=== PATIENT | female | born 1995 | race Caucasian/White ===

== ENCOUNTER 2018-03-15 20:26 | Emergency (ER) | payer OTHER, SELFPAY ==
[2018-03-15 20:27] VITALS: BP 154/70; PULSE 97; RESP 19; TEMP 36.2; O2SAT 100; BMI 18.8
--- NOTE | 2018-03-15 20:47 | EKG12_ITS ---
Test Reason : SYNCOPE Blood Pressure : / mmHG Vent. Rate : 094 BPM Atrial Rate : 094 BPM P-R Int : 154 ms QRS Dur : 092 ms QT Int : 354 ms P-R-T Axes : 069 086 044 degrees QTc Int : 442 ms Normal sinus rhythm RSR' or QR pattern in V1 suggests right ventricular conduction delay Borderline ECG Confirmed by ELMER REYES, ANNEMARIE ([id number]), editorial cartoonist CHAU GAN ([id number]) on 03/18/2018 3:17:26 PM Referred By: RUTH Confirmed By:ANNEMARIE PAYNE MD
--- NOTE | 2018-03-15 20:47 | CT_ITS ---
STUDY: CT BRAIN WITHOUT CONTRAST REASON FOR EXAM: Female, 22 years old. Syncope and confusion RADIATION DOSAGE (If Supplied By Facility): CTDIvol = ( 44.99 ) mGy, DLP = ( 745.49 ) mGycm TECHNIQUE: Transaxial CT imaging of the brain was performed without administration of intravenous contrast material. Individualized dose optimization techniques were used for this CT. COMPARISON: None. FINDINGS: Normal soft tissue structures. Normal calvarium. Normal size ventricles and extra-axial spaces for the patient's age. Normal white matter tracts of the cerebral hemispheres. Normal basal ganglia and thalami. Normal brainstem. Normal cerebellum. There is no intracranial hemorrhage. There are no findings of an acute ischemic infarction. Normal visualized paranasal sinuses. CT/Brain/Head without Contrast IMPRESSION: Normal unenhanced CT scan of the brain. Comment: If there is clinical concern for hyperacute ischemia that is not yet apparent by CT, MRI should be considered if possible. Electronically Signed: Portillo Victor MD at 22:08 EDT Tel , Service support ,
[2018-03-15] MEDS: Ketorolac 30 MG/ML Syringe IV (20:59)
[2018-03-15 21:07] LABS: Absolute Lymphocyte Count 1.32 X10^3/ul (0.83-4.51); Absolute Neutrophil Count 11.8 X10^3/uL (2.0-7.7); Basophil# 0.03 X10^3/uL; Basophil% 0.2 % (0-1); Differential Indicated SCAN CRITERIA MET; Eosinophil# 0.07 X10^3/uL; Eosinophils% 0.5 % (0-5); Hematocrit 37.6 % (37-47); Hemoglobin 12.7 g/dl (12.0-15.0); Lymphocyte # 1.32 X10^3/ul (4.0); Lymphocyte % 9.3 % (19-41); Mean Corp Hgb Conc 33.8 g/gl (32-36); Mean Corpuscular Hgb 29.2 pg (27.0-32.0); Mean Corpuscular Volume 86.4 fL (81-99); Mean Platelet Vol. 9.9 fl (6.2-12.0); Monocyte# 1.01 X10^3/uL; Monocyte% 7.1 % (0-10); Neutrophil # 11.77 X10^3/uL (2.7-7.7); Neutrophil % 82.8 % (47-70); POSITIVE COUNT YES; POSITIVE DIFFERENTIAL NO; POSITIVE MORPHOLOGY NO; Platelet Count 220 K/mm3 (150-450); RBC Distribution Width SD 41.6 fl (35.1-43.9); Red Blood Count 4.35 M/mm3 (4.2-5.4); White Blood Count 14.2 K/mm3 (4.4-11.0)
[2018-03-15 21:08] LABS: D-Dimer Quantitative (DVT/PE) < 0.27 FEU/ug/m (0.27-0.49)
[2018-03-15 21:11] LABS: Anion Gap 8 (5-15); BUN 14 mg/dL (7-18); BUN/Creat Ratio 15.4 RATIO (10-20); Calcium,Total 9.1 mg/dL (8.5-10.1); Chloride 106 mmol/L (98-107); Creatinine, Serum 0.91 mg/dL (0.55-1.02); EST Glomerular Filtration Rate 83 mL/min (>60); Est Glom Filt Rate - Afr Amer 101 mL/min (>60); Estimated Creatinine Clearance 84.74 ml/min; Glucose 93 mg/dL (74-106); Potassium 4.3 mmol/L (3.5-5.1); Sodium Level 139 mmol/L (136-145)
[2018-03-15 21:27] LABS: Differential Comment SCANNED
[2018-03-15 21:34] LABS: Pregnancy, Serum, hCG Quali. NEGATIVE Negative (0-9 Nonpreg)
--- NOTE | 2018-03-15 21:42 | RAD_ITS ---
STUDY: X-RAY CHEST REASON FOR EXAM: Female, 22 years old. Syncopal episode. TECHNIQUE: 2 views COMPARISON: None. FINDINGS: The lungs are clear and expanded. There is no demonstrated pleural abnormality. Normal size heart. Normal mediastinum and toni. Normal visualized pulmonary arteries. Normal visualized aortic arch and descending thoracic aorta. Normal visualized thoracic spine. Normal visualized ribs, clavicles, and shoulders. There is no demonstrated abnormality of the visualized soft tissue structures of the upper abdomen. RAD/Chest PA and Lateral IMPRESSION: Normal x-ray examination of the chest. Electronically Signed: Loni Rees MD at 22:12 EDT , Service support ,
[2018-03-15 22:10] VITALS: BP 131/85; PULSE 97; RESP 18; O2SAT 100
--- NOTE | 2018-03-15 22:13 | ED.VISSUMM ---
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 She states that she has a condition of vocal cord dysfunction and at times the dysfunction kicks in and she cannot breathe. She states that the end of the race after about 2 steps she collapsed and passed out. When she came to she was confused and had a frontal headache. She states that she has blurry vision very similar to when she needed eye surgery for strabismus. She states she feels shaky. She has not had syncope before she only one episode where she felt near syncope. She has taken numerous recent bus trips as part of the [employer] team. Physical Examination: Afebrile vital signs are 154/76 heart rate of 97 however 109 during my seen pulse ox 100% room air Gen: Well-nourished well-developed Head: Normocephalic atraumatic Eyes: Perrl EOMI ENT: TMs clear no rhinorrhea moist mucous membranes Neck: Supple no lymphadenopathy no JVD nontender CVS: Regular rate rhythm no murmurs normal S1-S2 Respiratory: No distress clear to auscultation bilaterally chest nontender Abdomen: Soft nontender nondistended normal bowel sounds no masses Back: Nontender Extremity: Nontender no edema Skin: Normal color no rash Neuro: alert orientated ?3 CN II-XII intact normal strength sensation reflexes gait cerebellar Test Results: EKG shows a sinus rhythm with a rate of 94 with an RSR prime pattern. Chest x-ray shows a normal mediastinal silhouette. Head CT is negative for hemorrhage. White count 14.2. Troponin negative d-dimer negative test negative. Chemistries normal. Emergency Department Course and Treatment: Patient received Toradol. She was observed. Patient will be discharged home to follow-up with her doctors. She was advised to visit with her trainers prior to return to [employer] activities Impression: 1. Syncope 2. Headache This note was generated with [employer] dictation software. It may contain incorrect words, spelling, and punctuation that were not noted in review of the chart prior to signing ED Disposition - Plan for ED Patient: Disposition: Home or Assisted Living Chief Complaint: Syncope Instructions: ED Fainting Unkn Cause Additional Instructions: You need to follow-up with your trainers prior to resuming [employer] activities I would recommend you follow-up with your physicians who have been treating your condition.
--- NOTE | 2018-03-15 22:17 | ED.DCSUM_ITS ---
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 She states that she has a condition of vocal cord dysfunction and at times the dysfunction kicks in and she cannot breathe. She states that the end of the race after about 2 steps she collapsed and passed out. When she came to she was confused and had a frontal headache. She states that she has blurry vision very similar to when she needed eye surgery for strabismus. She states she feels shaky. She has not had syncope before she only one episode where she felt near syncope. She has taken numerous recent bus trips as part of the [employer] team. Physical Examination: Afebrile vital signs are 154/76 heart rate of 97 however 109 during my seen pulse ox 100% room air Gen: Well-nourished well-developed Head: Normocephalic atraumatic Eyes: Perrl EOMI ENT: TMs clear no rhinorrhea moist mucous membranes Neck: Supple no lymphadenopathy no JVD nontender CVS: Regular rate rhythm no murmurs normal S1-S2 Respiratory: No distress clear to auscultation bilaterally chest nontender Abdomen: Soft nontender nondistended normal bowel sounds no masses Back: Nontender Extremity: Nontender no edema Skin: Normal color no rash Neuro: alert orientated ?3 CN II-XII intact normal strength sensation reflexes gait cerebellar Test Results: EKG shows a sinus rhythm with a rate of 94 with an RSR prime pattern. Chest x-ray shows a normal mediastinal silhouette. Head CT is negative for hemorrhage. White count 14.2. Troponin negative d-dimer negative test negative. Chemistries normal. Emergency Department Course and Treatment: Patient received Toradol. She was observed. Patient will be discharged home to follow-up with her doctors. She was advised to visit with her trainers prior to return to [employer] activities Impression: 1. Syncope 2. Headache This note was generated with [employer] dictation software. It may contain incorrect words, spelling, and punctuation that were not noted in review of the chart prior to signing ED Disposition - Plan for ED Patient: Disposition: Home or Assisted Living Chief Complaint: Syncope Instructions: ED Fainting Unkn Cause Additional Instructions: You need to follow-up with your trainers prior to resuming [employer] activities I would recommend you follow-up with your physicians who have been treating your condition.
[2018-03-15 22:37] VITALS: BP 133/85; PULSE 104; RESP 16; O2SAT 99
== END 2018-03-15 22:38 | disposition home or self-care (01) ==
PROVIDERS: Emergency Provider Emergency Medicine
DX: R55 Syncope and collapse (principal); R51 Headache
CPT/HCPCS: 70450; 71046; 80048; 84484; 84703; 85025; 85379; 93005; 96374; 99285; A4216